=== PATIENT | male | born 1955 | race Caucasian/White ===

== ENCOUNTER 2020-11-19 16:17 | Day surgery (SDCO) | payer MEDICARE, OTHER ==
[~2020-11-19 16:17] MED LIST: ASPIRIN EC81 MG PO; CYCLOBENZAPRINE10 MG PO; LIPITOR20 MG PO; MEDROL 4MG DOSEP4 MG PO; MOTRIN600 MG PO; NORCO 5-325 TA1 EACH PO; NORVASC5 MG PO; PERCOCET 5-3251 EACH PO; PREDNISONE50 MG PO; PRINIVIL10 MG PO; PROVENTIL HFA6.7 GM INH
[2020-11-19 18:43] LABS: BASOPHIL 0.1 % (0-2); EOSINOPHIL 0.3 % (0-7); HGB 12.9 g/dl (13.2-18.0); LYMPHOCYTE 25.3 % (15-48); MCH 30.4 pg (25.0-31.0); MCHC 33.1 g/dL (32.0-36.0); MONOCYTE 6.8 % (0-12); MPV 9.5 fL (6.0-9.5); NRBC 0; PLT 297 K/uL (150-400); RBC 4.24 M/uL (4.70-6.00); RDW 12.6 % (11.5-14.0); WBC 16.5 K/uL (4.0-10.5)
[2020-11-19 18:52] LABS: BILIRUBIN NEGATIVE (NEGATIVE); BLOOD NEGATIVE Ery/uL (NEGATIVE); CLARITY CLEAR (CLEAR); COLOR YELLOW (YELLOW); GLUCOSE (U) NORMAL (NORMAL); LEUKOCYTES NEGATIVE Leu/uL (NEGATIVE); NITRITE NEGATIVE (NEGATIVE); PROTEIN NEGATIVE (NEGATIVE); pH 6.5 (5.0-9.0)
[2020-11-19 19:00] LABS: ALBUMIN 3.4 g/dL (3.4-5.0); BILIRUBIN - TOTAL 0.3 mg/dL (0.2-1.0); BUN/CREAT RATIO (CALC) 18.4 RATIO; C-REACTIVE PROTEIN 0.4 mg/dL (<=0.90); CREATININE 0.87 mg/dL (0.67-1.17); GLOBULIN (CALCULATION) 3.4 g/dL; MAGNESIUM 2.1 mg/dL (1.8-2.4); POTASSIUM 3.4 mmol/L (3.5-5.1); TOTAL PROTEIN 6.8 g/dL (6.4-8.2)
[2020-11-19 19:18] LABS: INR 1.01 (0.9-1.2); PROTHROMBIN TIME 12.6 SECONDS (11.4-13.6); PTT 25.6 SECONDS (22.2-34.7)
[2020-11-19 19:19] LABS: D-DIMER 0.7 ug/mLFEU (0.00-0.41)
[2020-11-20 06:00] LABS: BASOPHIL 0.2 % (0-2); EOSINOPHIL 0.9 % (0-7); HCT 39.4 % (42.0-52.0); HGB 13.1 g/dl (13.2-18.0); LYMPHOCYTE 32.3 % (15-48); MCHC 33.2 g/dL (32.0-36.0); MCV 93.4 fL (78.0-100.0); MONOCYTE 7.9 % (0-12); MPV 9.3 fL (6.0-9.5); NEUTROPHIL 58.3 % (41-80); NRBC 0; PLT 267 K/uL (150-400); RBC 4.22 M/uL (4.70-6.00); RDW 12.8 % (11.5-14.0)
[2020-11-20 06:22] LABS: ALBUMIN 3.3 g/dL (3.4-5.0); BILIRUBIN - TOTAL 0.5 mg/dL (0.2-1.0); BUN/CREAT RATIO (CALC) 16.3 RATIO; CREATININE 1.04 mg/dL (0.67-1.17); GLOBULIN (CALCULATION) 3.2 g/dL; POTASSIUM 3.6 mmol/L (3.5-5.1); TOTAL PROTEIN 6.5 g/dL (6.4-8.2)
--- NOTE | 2020-11-20 12:34 | NUR ---
11/20/20 Mr. Renteria was independent prior to admission. He is currently living in his truck and was not interested in housing resources. Listings of housing and financial resources were left as bedside.
[2020-11-21 06:41] LABS: BASOPHIL 0.3 % (0-2); HCT 38.7 % (42.0-52.0); HGB 12.4 g/dl (13.2-18.0); LYMPHOCYTE 38.3 % (15-48); MCH 30.1 pg (25.0-31.0); MCV 93.9 fL (78.0-100.0); MONOCYTE 10.2 % (0-12); MPV 9.6 fL (6.0-9.5); NEUTROPHIL 46.9 % (41-80); NRBC 0; PLT 242 K/uL (150-400); RBC 4.12 M/uL (4.70-6.00); RDW 12.3 % (11.5-14.0); WBC 8.7 K/uL (4.0-10.5)
[2020-11-21 07:00] LABS: BUN/CREAT RATIO (CALC) 23.1 RATIO; CREATININE 0.91 mg/dL (0.67-1.17); POTASSIUM 3.8 mmol/L (3.5-5.1)
[2020-11-21] MEDS ORDERED: DOXYCYCLINE MO100 MG PO (09:03)
[2020-11-21] MEDS ORDERED: PROVENTIL HFA6.7 GM INH (09:03)
== END 2020-11-21 11:40 | disposition home or self-care (01) ==
LOC: FER 16:17 → FTCU 21:31
PROVIDERS: Emergency Medicine; Nurse Practitioner; ADMIT Internal Medicine
DX: R07.89 Other chest pain (principal); S22.31XA Fracture of one rib, right side, initial encounter for closed fracture; L73.9 Follicular disorder, unspecified; J44.9 Chronic obstructive pulmonary disease, unspecified; I10 Essential (primary) hypertension; I25.10 Atherosclerotic heart disease of native coronary artery without angina pectoris; M19.90 Unspecified osteoarthritis, unspecified site; F17.210 Nicotine dependence, cigarettes, uncomplicated; I35.8 Other nonrheumatic aortic valve disorders; Z79.82 Long term (current) use of aspirin; Z79.899 Other long term (current) drug therapy; Z88.5 Allergy status to narcotic agent; Z59.0 Homelessness; Z20.828 Contact with and (suspected) exposure to other viral communicable diseases
CPT/HCPCS: 36415; 71045; 80048; 80053; 80061; 81003; 83615; 83735; 83880; 84484; 85025; 85379; 85610; 85730; 86140; 93005; 94640; G0378; J1170; J1885; J2405; U0002